=== PATIENT | female | born 1980 | race Caucasian/White ===

== ENCOUNTER 2017-06-22 17:19 | Observation (INO) | payer BC ==
[~2017-06-22] VITALS: Ht 160 cm; Wt 105.0 kg
--- NOTE | 2017-06-22 17:47 | ED.ADGEN ---
Adult General Chief Complaint Chief Complaint Multiple medical complaints HPI HPI Patient is a 36-year-old female with history of lupus who presents with lupus rash of face, upper torso since yesterday, arthralgia of bilateral knees with swelling of both legs, mild dyspnea. Symptoms began yesterday and progressed. Patient 15 hours visit over the holiday weekend prior to symptom onset. Patient states she frequently has lupus flares triggered by changes in temperature. She denies chest pain, chest tightness, fever, cough, sore, abdominal pain, nausea vomiting. Reports concentrated urine without frequency urgency. No history of DVT or PE. Denies hospitalization due lupus-related complications. Hysterectomy 5 months ago's due to large fibroid.] Review of Systems Review of Systems Review symptoms as per history of present illness. All other review symptoms are negative. [] All other systems were reviewed and found to be within normal limits, except as documented in this note. Physical Exam Physical Exam Constitutional: Well developed, well nourished, no acute distress, non-toxic appearance. [] HENT: Normocephalic, atraumatic, bilateral external ears normal, oropharynx moist, no oral exudates, nose normal. [] Eyes: PERRLA, EOMI, conjunctiva normal, no discharge. [] Neck: Normal range of motion, no tenderness, supple, no stridor. [] Cardiovascular:Heart rate regular rhythm, no murmur [] Lungs & Thorax: Bilateral breath sounds clear to auscultation [] Abdomen: Bowel sounds normal, soft, no tenderness, no masses, limited by body habitus.. [] Skin: Light erythematous macular rash of torso, and face. [] Back: No tenderness, no CVA tenderness. [] Extremities: No peripheral edema, bilateral throat are without obvious swelling. [] Neurologic: Alert and oriented X 3, normal motor function, normal sensory function, no focal deficits noted. [] Psychologic: Affect normal, judgement normal, mood normal. [] EKG EKG [] Radiology/Procedures Radiology/Procedures [] Course & Med Decision Making Course & Med Decision Making Pertinent Labs and Imaging studies reviewed. (See chart for details) [Multiple symptoms consistent with lupus exacerbation. Work up for cause and to rule out complication. Workup in progress at time of shift change. Care endorsed to oncoming ERP at 1800] Final Impression Final Impression [] Problems: Dragon Disclaimer Dragbailey Disclaimer This electronic medical record was generated, in whole or in part, using a voice recognition dictation system. SUSAN NEW DO Jun 22, 2017 17:47
[2017-06-22 18:05] LABS: BASO % 0 % (0-3); EOS # 0.2 x10^3/uL (0.0-0.7); EOS % 2 % (0-3); HEMATOCRIT 37.6 % (36.0-47.0); HEMOGLOBIN 13.1 g/dL (12.0-15.5); LYMPH # 2.8 x10^3/uL (1.0-4.8); LYMPH % 29 % (24-48); MEAN CORPUSCULAR HEMOGLOBIN 35 pg (25-35); MEAN CORPUSCULAR HGB CONC 35 g/dL (31-37); MEAN CORPUSCULAR VOLUME 99 fL (79-100); MONO # 0.8 x10^3/uL (0.0-1.1); MONO % 8 % (0-9); NEUT # 5.7 x10^3uL (1.8-7.7); NEUT % 60 % (31-73); PLATELET COUNT 345 x10^3/uL (140-400); RED CELL DISTRIBUTION WIDTH 13.7 % (11.5-14.5); WHITE BLOOD COUNT 9.5 x10^3/uL (4.0-11.0)
--- NOTE | 2017-06-22 18:16 | EKG ---
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
[2017-06-22 18:20] LABS: ALBUMIN 3.7 g/dL (3.4-5.0); ALBUMIN/GLOBULIN RATIO 1.1 (1.0-1.7); C REACTIVE PROTEIN 2.2 mg/L (0-3.3); CALCIUM 8.8 mg/dL (8.5-10.1); CREATININE 0.8 mg/dL (0.6-1.0); GFR 80.3; POTASSIUM 4.2 mmol/L (3.5-5.1); TOTAL BILIRUBIN 0.1 mg/dL (0.2-1.0); TOTAL PROTEIN 7.1 g/dL (6.4-8.2)
--- NOTE | 2017-06-22 19:31 | RAD ---
Bilateral lower extremity venous duplex Doppler ultrasound HISTORY: Bilateral leg pain and swelling. TECHNIQUE: Grayscale and duplex Doppler sonography were utilized. FINDINGS: No evidence of deep venous thrombosis by grayscale sonography with compressibility, patent color Doppler blood flow and augmentation of blood flow of the bilateral common femoral veins, profunda femoral veins, superficial femoral veins and popliteal veins. No thrombosis with patent color Doppler blood flow the posterior tibial and peroneal veins in the calves. IMPRESSION: Negative bilateral legs for deep venous thrombosis. Electronically signed by: Kaden Osborn MD (06/22/2017 7:28 PM) [facility]
[2017-06-22 19:58] LABS: BACTERIA,URINE 0 /HPF (0-FEW); BILIRUBIN,URINE NEG (NEG); CLARITY,URINE HAZY; COLOR,URINE YELLOW; GLUCOSE,URINE NEG (NEG); NITRITE,URINE NEG (NEG); RBC,URINE OCC /HPF (0-2); SQUAMOUS EPITHELIAL CELL,UR MANY /LPF; UROBILINOGEN,URINE 0.2 mg/dL (0.2 mg/dL)
[2017-06-22] MEDS ORDERED: IOHEXOL 300 MG/ML 75 ML VIAL. IV ONE (20:00)
[2017-06-22] MEDS ORDERED: CONTRAST GIVEN MC PRN (20:00)
[2017-06-22 20:25] LABS: SEDIMENTATION RATE 20 (0-25)
--- NOTE | 2017-06-22 20:50 | RAD ---
CT angiography chest with contrast TECHNIQUE: Helical CT imaging of the chest with multiplanar 3-D MIP reconstructions of the pulmonary arteries to assess for emboli with 75 mL Omnipaque 300 intravenous contrast. HISTORY: Chest pain shortness of breath after recent long motor vehicle trip. History of lupus. FINDINGS: Contrast under opacification of the pulmonary arteries presumably due to timing of imaging with contrast bolus will decrease sensitivity to detect emboli however diagnostic information for the exam still remains. Pulmonary artery embolus to the lateral and posterior basilar right lower lobe arterial branches. No large pulmonary artery embolus central of the luba evident. Heart size upper limits normal. Thoracic aorta and esophagus unremarkable. No adenopathy in the chest. No pneumothorax, pulmonary opacities or pleural effusions. Left lower lobe posterior subpleural 7 mm soft tissue nodule. Bones unremarkable. IMPRESSION: 1. Right lower lobe pulmonary artery emboli. 2. 7 mm left lower lobe pulmonary solid nodule. Follow-up CT in 6-12 months, then again at 18-24 months if no change is advised per Fleischner guidelines. Critical results called to Dr. Sandoval in the emergency department at 8:45 PM June 22, 2017. Exposure: One or more of the following individualized dose reduction techniques were utilized for this examination: 1. Automated exposure control 2. Adjustment of the mA and/or kV according to patient size 3. Use of iterative reconstruction technique Electronically signed by: Kaden Osborn MD (06/22/2017 8:47 PM) [facility]
[2017-06-22] MEDS ORDERED: ONDANSETRON PF 4 MG/2 ML VIAL. IV PRN (22:30)
[2017-06-22] MEDS ORDERED: MORPHINE SULFATE 2 MG/ML DISP.SYRIN. IV PRN ×2 (22:30→22:45)
[2017-06-22] MEDS ORDERED: ACETAMINOPHEN 325 MG TABLET PO PRN (22:30)
[2017-06-22] MEDS ORDERED: MORPHINE SULFATE 4 MG/ML DISP.SYRIN. IV PRN (22:45)
[2017-06-22 23:39] VITALS: BP 139/88
[2017-06-22] MEDS ORDERED: DIPH25CA58 PO (23:46)
[2017-06-22] MEDS ORDERED: CETI10TA22 PO (23:46)
[2017-06-22] MEDS ORDERED: BUDE10.22 IH (23:46)
[2017-06-22] MEDS ORDERED: CARV12.52 PO (23:46)
[2017-06-22] MEDS ORDERED: ALBU8.5H8 IH (23:46)
[2017-06-22] MEDS ORDERED: ALPR0.254 PO (23:46)
[2017-06-22] MEDS: ENOXAPARIN ** NOTE DOSE ** SYRINGE SQ SCH (23:55)
[2017-06-23] MEDS ORDERED: diphenhydrAMINE HCL 25 MG CAPSULE PO PRN (00:15)
[2017-06-23] MEDS: oxyCODONE/APAP 5/325 1 TAB TABLET PO PRN ×3 (03:13→15:51)
[2017-06-23] MEDS ORDERED: ANTI-COAG MONITOR BY PHARMACY. MC PRN (03:15)
[2017-06-23 03:16] VITALS: BP 119/72
[2017-06-23] MEDS ORDERED: IPRATRPIUM/ALBUTEROL 0.5/2.5MG 3 ML NEBU. ONE (05:07)
[2017-06-23 06:01] VITALS: BP 118/64
[2017-06-23] MEDS: IPRATRPIUM/ALBUTEROL 0.5/2.5MG 3 ML NEBU. NEB SCH ×2 (06:12→10:44)
[2017-06-23 06:25] LABS: CALCIUM 8.2 mg/dL (8.5-10.1); CREATININE 0.7 mg/dL (0.6-1.0); GFR 93.6
[2017-06-23 06:26] LABS: BASO # 0.1 x10^3/uL (0.0-0.2); BASO % 1 % (0-3); EOS # 0.3 x10^3/uL (0.0-0.7); EOS % 3 % (0-3); HEMATOCRIT 36.2 % (36.0-47.0); HEMOGLOBIN 12.7 g/dL (12.0-15.5); LYMPH # 3.6 x10^3/uL (1.0-4.8); LYMPH % 37 % (24-48); MEAN CORPUSCULAR HEMOGLOBIN 35 pg (25-35); MEAN CORPUSCULAR HGB CONC 35 g/dL (31-37); MEAN CORPUSCULAR VOLUME 100 fL (79-100); MONO # 0.8 x10^3/uL (0.0-1.1); MONO % 8 % (0-9); NEUT % 52 % (31-73); PLATELET COUNT 346 x10^3/uL (140-400); RED BLOOD COUNT 3.62 x10^6/uL (3.50-5.40); WHITE BLOOD COUNT 9.7 x10^3/uL (4.0-11.0)
[2017-06-23 06:29] LABS: POTASSIUM 4.1 mmol/L (3.5-5.1)
--- NOTE | 2017-06-23 07:20 | RAD ---
Portable chest, 06/22/2017: History: Chest pain, shortness of breath The heart size and pulmonary vascularity are normal. The lungs are clear. There is no evidence of pleural fluid. IMPRESSION: No acute cardiopulmonary abnormality is detected.
[2017-06-23] MEDS: ENOXAPARIN ** NOTE DOSE ** SYRINGE SQ SCH (08:29)
[2017-06-23] MEDS ORDERED: ALPRAZolam 0.25 MG TABLET PO PRN (08:30)
[2017-06-23] MEDS ORDERED: SUMAtriptan SUCCINATE 50 MG TABLET PO PRN (08:30)
[2017-06-23] MEDS ORDERED: ALBUTEROL SULFATE 8GM INHALER. IH PRN (08:30)
[2017-06-23] MEDS ORDERED: ALBUTEROL SULFATE 2.5 MG/3 ML NEBU. NEB PRN (08:45)
[2017-06-23] MEDS ORDERED: SUMAtriptan SUCCINATE 50 MG TABLET PO ONE (08:45)
[2017-06-23] MEDS ORDERED: APIXABAN 5 MG TABLET. PO SCH (09:00)
[2017-06-23] MEDS ORDERED: NON FORMULARY ITEM (Budesonide/Formoterol Fumarate (Symbicort 80-4.5 Mcg Inhaler) 2 PUFF) IH SCH (09:00)
[2017-06-23] MEDS ORDERED: NICOTINE 21MG PATCH. TD SCH (09:00)
[2017-06-23] MEDS ORDERED: CARVEDILOL 12.5 MG TABLET PO SCH (09:00)
[2017-06-23] MEDS ORDERED: HYDROCORTISONE 1% TOPICAL OINTMENT 30GM TUBE. TP SCH (09:00)
[2017-06-23] MEDS ORDERED: BUDESONIDE 0.5 MG/2 ML NEBU NEB SCH (09:00)
[2017-06-23] MEDS ORDERED: CETIRIZINE HCL 10 MG TABLET PO SCH (09:00)
[2017-06-23] MEDS ORDERED: PNEUMOCOCCAL VAX SCREEN. MC PRN (09:00)
[2017-06-23] MEDS ORDERED: PNEUMOC CONJ VACC 23-VALENT 0.5 ML VIAL. VAX IM ONE (09:00)
[2017-06-23] MEDS ORDERED: APIX5TAB3 PO (09:07)
[2017-06-23] MEDS: HYDROCORTISONE 1% TOPICAL CREAM 30GM TUBE. TP SCH ×2 (10:19→15:38)
[2017-06-23 11:05] VITALS: BP 134/89
--- NOTE | 2017-06-23 12:23 | HP ---
ADMIT DATE: 06/22/2017 REASON FOR ADMISSION: Apparent lupus flare, pain in both legs and right lung PE. HISTORY OF PRESENT ILLNESS: A 36-year-old female who originally is from [place], but now lives in [place], took a long car trip from [place], [place], to visit family. She states in about a 15-hour trip, she did stop and stayed in a hotel, early Wednesday morning, did not sleep well. Noted that her legs were swollen for the last 4 days and she is having some difficulty walking upstairs. Particularly, at the back of her calves. PAST MEDICAL HISTORY: She just got over pneumonia where she had been treated 3 times. Last time, they did not give her antibiotics. She is being treated with Mucinex. She has lupus and feels like she is getting the rash on her face and is having problems with hives. She has been treated with steroids in the past, but because of all the steroids from the pneumonia, doctor did not want to treat her with steroids. She also has tobacco use disorder, migraine headaches, problems with sleepwalking and nightmares and probable sleep apnea. PAST SURGICAL HISTORY: The patient had a hysterectomy in January 2017. SOCIAL HISTORY: The patient travels by car everywhere for long hours. She smokes about 10 cigarettes a day, quit drinking a year ago. No regular exercise. REVIEW OF SYSTEMS: Positive shortness of breath, positive hives, positive pain in her legs, positive headache. No sore throat or fever. OBJECTIVE: VITAL SIGNS: Blood pressure 118/64, pulse 96, temperature 97.9, respirations 22, pulse ox was 95% on room air, now 97% on room air. Height 63 inches, weight 231.44 pounds. HEENT: Pupils were equal, round, react to light. Extraocular muscles are intact. Her throat was clear. She has a large tongue relative to small posterior pharynx. NECK: Short, supple. LUNGS: Clear to auscultation. CARDIOVASCULAR: Irregular rhythm and rate with slight 1-2/6 murmur heard at the pulmonic area. ABDOMEN: Soft, nontender. EXTREMITIES: Without pitting edema; however, her legs are both large, calves are tender, no cords, tight tendons in the posterior calf area. No masses in the thighs. IMAGING: CT of the chest shows a right lower lobe pulmonary artery emboli and a 7 mm left lower lobe pulmonary nodule. Lower extremity ultrasound negative. Chemistry profile is basically normal. D-dimer was not done. Urinalysis really normal. CBC is normal. ASSESSMENT: 1. Right lower lobe pulmonary emboli. 2. Incidental finding of 7 mm left pulmonary nodule. 3. Tobacco use disorder. 4. Recovered alcohol use disorder. 5. Migraine headaches, has a headache currently. 6. History of pneumonia x 3. 7. Hysterectomy 6 months ago. 8. Health maintenance: Needs flu shot and pneumonia shot. PLAN: The patient received Lovenox and will start on Eliquis. Treating her for pain, do LISANDRO black. Informed her of the pulmonary nodule, which needs followup and the need to quit smoking and we will treat her migraine. GENA ALTAMIRANO DO DR: OBDULIA/elizabeth JOB#: [id number] / [id number]
[2017-06-23 14:52] VITALS: BP 113/80
[2017-06-23] MEDS ORDERED: APIXABAN 5 MG TABLET. PO ONE (15:00)
[2017-06-24] MEDS ORDERED: APIXABAN 5 MG TABLET. PO SCH (09:00)
--- NOTE | 2017-06-30 14:48 | PDOC3 ---
Discharge Summary Visit Information Date of Admission: Jul 23, 2017 Date of Discharge: Jul 24, 2017 Final Diagnosis Problems Medical Problems: (1) Pulmonary embolism Status: Acute Problems: Brief Hospital Course Allergies Allergies Coded Allergies Type Severity Reaction Last Updated Verified No Known Drug Allergies 06/22/17 No Brief Hospital Course Ms. Oates is a 36 old [sex] who presented with [ ] REASON FOR ADMISSION: Apparent lupus flare, pain in both legs and right lung PE. HISTORY OF PRESENT ILLNESS: A 36-year-old female who originally is from [place], but now lives in [place], took a long car trip from [place], [place], to visit family. She states in about a 15-hour trip, she did stop and stayed in a hotel, early Wednesday morning, did not sleep well. Noted that her legs were swollen for the last 4 days and she is having some difficulty walking upstairs. Particularly, at the back of her calves. PAST MEDICAL HISTORY: She just got over pneumonia where she had been treated 3 times. Last time, they did not give her antibiotics. She is being treated with Mucinex. She has lupus and feels like she is getting the rash on her face and is having problems with hives. She has been treated with steroids in the past, but because of all the steroids from the pneumonia, doctor did not want to treat her with steroids. She also has tobacco use disorder, migraine headaches, problems with sleepwalking and nightmares and probable sleep apnea. PAST SURGICAL HISTORY: The patient had a hysterectomy in January 2017. SOCIAL HISTORY: The patient travels by car everywhere for long hours. She smokes about 10 cigarettes a day, quit drinking a year ago. No regular exercise. REVIEW OF SYSTEMS: Positive shortness of breath, positive hives, positive pain in her legs, positive headache. No sore throat or fever. OBJECTIVE: VITAL SIGNS: Blood pressure 118/64, pulse 96, temperature 97.9, respirations 22, pulse ox was 95% on room air, now 97% on room air. Height 63 inches, weight 231.44 pounds. HEENT: Pupils were equal, round, react to light. Extraocular muscles are intact. Her throat was clear. She has a large tongue relative to small posterior pharynx. NECK: Short, supple. LUNGS: Clear to auscultation. CARDIOVASCULAR: Irregular rhythm and rate with slight 1-2/6 murmur heard at the pulmonic area. ABDOMEN: Soft, nontender. EXTREMITIES: Without pitting edema; however, her legs are both large, calves are tender, no cords, tight tendons in the posterior calf area. No masses in the thighs. IMAGING: CT of the chest shows a right lower lobe pulmonary artery emboli and a 7 mm left lower lobe pulmonary nodule. Lower extremity ultrasound negative. Chemistry profile is basically normal. D-dimer was not done. Urinalysis really normal. CBC is normal. ASSESSMENT: 1. Right lower lobe pulmonary emboli. 2. Incidental finding of 7 mm left pulmonary nodule. 3. Tobacco use disorder. 4. Recovered alcohol use disorder. 5. Migraine headaches, has a headache currently. 6. History of pneumonia x 3. 7. Hysterectomy 6 months ago. 8. Health maintenance: Needs flu shot and pneumonia shot. PLAN: The patient received Lovenox and will start on Eliquis. Treating her for pain, do LISANDRO black. Informed her of the pulmonary nodule, which needs followup and the need to quit smoking and we will treat her migraine. GENA ALTAMIRANO, DO Discharge Information Condition at Discharge: Stable Disposition/Orders: D/C to Home Dischare Medications Current Medications Iohexol (Omnipaque 300 Mg/ml) 75 ml 1X ONCE IV Last administered on 20:15; Start 06/22/17 at 20:00; Stop 06/22/17 at 20:01; Status DC Info (Do NOT chart on this entry -- for MONITORING) 1 each PRN DAILY PRN MC SEE COMMENTS; Start 06/22/17 at 20:00; Stop 06/23/17 at 16:39; Status DC Enoxaparin Sodium (Lovenox 100mg Syringe) 100 mg Q12HR SQ Last administered on 06/23/17 08:29; Start 06/22/17 at 23:30; Stop 06/23/17 at 09:23; Status DC Ondansetron HCl (Zofran) 4 mg PRN Q4HRS PRN IV NAUSEA/VOMITING Last administered on 06/22/17 22:39; Start 06/22/17 at 22:30; Stop 06/23/17 at 16 :39; Status DC Morphine Sulfate (Morphine 2mg Syringe) 2 mg PRN Q2HR PRN IV SEVERE PAIN; Start 06/22/17 at 22:30; Stop 06/22/17 at 22:38; Status DC Acetaminophen (Tylenol) 650 mg PRN Q4HRS PRN PO FEVER; Start 06/22/17 at 22:30 ; Stop 06/23/17 at 16:39; Status DC Albuterol/ Ipratropium (Duoneb) 3 ml RTQID NEB Last administered on 06/23/17 10:44; Start 06/23/17 at 08:00; Stop 06/23/17 at 16:39; Status DC Morphine Sulfate (Morphine 4mg Syringe) 2 mg PRN Q2HR PRN IV SEVERE PAIN; Start 06/22/17 at 22:45; Stop 06/22/17 at 22:45; Status DC Morphine Sulfate (Morphine 2mg Syringe) 2 mg PRN Q2HR PRN IV SEVERE PAIN Last administered on 06/22/17 22:54; Start 06/22/17 at 22:45; Stop 06/23/17 at 16 :39; Status DC Diphenhydramine HCl (Benadryl) 25 mg PRN Q6HRS PRN PO ITCHING Last administered on 06/23/17 00:25; Start 06/23/17 at 00:15; Stop 06/23/17 at 16 :39; Status DC Oxycodone/ Acetaminophen (Percocet 5/325) 1 tab PRN Q4HRS PRN PO SEVERE PAIN Last administered on 06/23/17 15:51; Start 06/23/17 at 00:15; Stop 06/23/17 at 16:39; Status DC Nicotine (Nicoderm Cq 21mg) 1 patch DAILY TD Last administered on 06/23/17 08 :30; Start 06/23/17 at 09:00; Stop 06/23/17 at 16:39; Status DC Pneumococcal Polyvalent Vaccine (Do NOT chart on this entry -- for MONITORING) 1 each PRN 1X PRN MC SEE COMMENTS; Start 06/23/17 at 09:00; Status UNV Pneumococcal Polyvalent Vaccine (Pneumovax 23) 0.5 ml ONCE ONCE VAX IM Last administered on 06/23/17 15:49; Start 06/23/17 at 09:00; Stop 06/23/17 at 09 :01; Status DC Info (Anti-Coagulation Monitoring By Pharmacy) 1 each PRN DAILY PRN MC SEE COMMENTS; Start 06/23/17 at 03:15; Stop 06/23/17 at 16:39; Status DC Albuterol/ Ipratropium (Duoneb) 3 ml STK-MED ONCE .ROUTE Last administered on 06/23/17 06:12; Start 06/23/17 at 05:07; Stop 06/23/17 at 05:08; Status DC Sumatriptan Succinate (Imitrex) 50 mg 1X ONCE PO Last administered on 08:40; Start 06/23/17 at 08:45; Stop 06/23/17 at 08:46; Status DC Sumatriptan Succinate (Imitrex) 50 mg PRN Q2HR PRN PO MIGRAINE HEADACHE Last administered on 06/23/17 10:18; Start 06/23/17 at 08:30; Stop 06/23/17 at 16 :39; Status DC Albuterol Sulfate (Ventolin Hfa) 2 puff PRN QID PRN IH WHEEZING; Start at 08:30; Stop 06/23/17 at 08:40; Status DC Alprazolam (Xanax) 0.25 mg PRN BID PRN PO ANXIETY / AGITATION; Start 06/23/17 at 08:30; Stop 06/23/17 at 16:39; Status DC Carvedilol (Coreg) 12.5 mg BIDWMEALS PO Last administered on 06/23/17 08:40; Start 06/23/17 at 09:00; Stop 06/23/17 at 16:39; Status DC Cetirizine HCl (ZyrTEC) 10 mg DAILY PO Last administered on 06/23/17 08:41; Start 06/23/17 at 09:00; Stop 06/23/17 at 16:39; Status DC Non-Formulary Medication 2 puff BID IH ; Start 06/23/17 at 09:00; Stop at 09:00; Status DC Budesonide (Pulmicort) 0.5 mg RTBID NEB Last administered on 06/23/17 10:45; Start 06/23/17 at 09:00; Stop 06/23/17 at 16:39; Status DC Albuterol Sulfate (Ventolin) 2.5 mg PRN QID PRN NEB SHORTNESS OF AIR; Start at 08:45; Stop 06/23/17 at 16:39; Status DC Apixaban (Eliquis) 10 mg BID PO ; Start 06/23/17 at 09:00; Stop 06/23/17 at 09 :34; Status DC Hydrocortisone (Cortaid) 1 geovanny [id number] TP ; Start 06/23/17 at 09:00; Stop at 09:27; Status DC Hydrocortisone (Cortaid) 1 geovanny BID92 TP Last administered on 06/23/17 15:38; Start 06/23/17 at 09:00; Stop 06/23/17 at 16:39; Status DC Apixaban (Eliquis) 10 mg BID PO ; Start 06/24/17 at 09:00; Stop 06/24/17 at 09 :00; Status DC Apixaban (Eliquis) 10 mg 1X ONCE PO Last administered on 06/23/17 15:38; Start 06/23/17 at 15:00; Stop 06/23/17 at 15:02; Status DC Active Scripts Active Eliquis (Apixaban) 5 Mg Tablet 10 Mg PO BID 7 Days then 5mg bid for 6 months Reported Zyrtec (Cetirizine Hcl) 10 Mg Tablet 10 Mg PO DAILY Benadryl (Diphenhydramine Hcl) 25 Mg Capsule 25 Mg PO PRN Q6HRS PRN Alprazolam 0.25 Mg Tablet 0.25 Mg PO PRN BID PRN Symbicort 80-4.5 Mcg Inhaler (Budesonide/Formoterol Fumarate) 10.2 Gm Hfa.aer.ad 2 Puff IH BID Proair Hfa Inhaler (Albuterol Sulfate) 8.5 Gm Hfa.aer.ad 2 Puff IH PRN QID PRN Carvedilol 12.5 Mg Tablet 12.5 Mg PO BID GENA ALTAMIRANO DO Jun 30, 2017 14:48
== END 2017-06-23 16:39 | disposition home or self-care (01) ==
LOC: ER 17:19 → INTOOBSV 21:03 → 1 SOUTH 21:03
PROVIDERS: ADMIT Family Medicine; ATTEND Family Medicine
DX: I26.99 Other pulmonary embolism without acute cor pulmonale (principal); R06.00 Dyspnea, unspecified; R21 Rash and other nonspecific skin eruption; F17.210 Nicotine dependence, cigarettes, uncomplicated; R91.1 Solitary pulmonary nodule; G43.909 Migraine, unspecified, not intractable, without status migrainosus; G47.30 Sleep apnea, unspecified; F10.10 Alcohol abuse, uncomplicated; Z23 Encounter for immunization
CPT/HCPCS: 36415; 71010; 71275; 80048; 80053; 81001; 83880; 85025; 85610; 85651; 85730; 86140; 90471; 90732; 93005; 93970; 94640; 96372; 96374; 96375; 99285; 99406; G0378; G0379; J1650; J2270; J2405; J7620; J7626; Q0163; Q9967